=== PATIENT | male | born 1960 | race Caucasian/White ===

== ENCOUNTER 2016-12-16 20:56 | Emergency (ER) | payer BC ==
[~2016-12-16] VITALS: Ht 177.8 cm; Wt 99.8 kg
[~2016-12-16 20:56] MED LIST: ASPIRIN81 M1 PO; BENADRYL25 MG PO; CLARITIN10 MG PO; DAILY VALUE1 EACH PO; DELTASONE10 MG PO; EMEND PO; ENALAPRIL10 MG PO; FISH OIL500 MG PO; FLEXERIL10 MG PO; GLUCOPHAGE1000 MG PO; GLUCOPHAGE500 M1 PO; GLUCOPHAGE500 MG PO; HYDROCODONE BIT1 T11 PO; JANUVIA100 MG PO; MEDROL DOSEPAK4 MG PO; MOTRIN800 MG PO; NAPROSYN500 MG PO; NKHM; NORFLEX100 MG PO; PERCOCET 325 MG1 TA5 PO; PHENERGAN25 M1 PO; PREDNISONE10 MG PO; SKELAXIN800 M1 PO; ULTRAM50 MG PO; VICODIN 5/500 505 MG PO; ZYRTEC10 M3 PO; ZYRTEC10 MG PO
[2016-12-16 22:04] VITALS: BP 150/87
[2016-12-16] MEDS ORDERED: PREDNISONE10 MG PO (23:09)
[2016-12-16] MEDS ORDERED: CIMETIDINE400 M1 PO (23:09)
[2016-12-16] MEDS ORDERED: LOPRESSOR25 MG PO (23:24)
== END 2016-12-16 23:39 | disposition home or self-care (01) ==
LOC: ED 20:56
DX: T78.3XXA Angioneurotic edema, initial encounter (principal); Z79.82 Long term (current) use of aspirin

== ENCOUNTER → 2017-03-23 | Outpatient (CLI) | payer BC ==
[~2017-03-23] MED LIST changes: +CIMETIDINE400 M1 PO; +LOPRESSOR25 MG PO
[2017-03-23 10:16] LABS: HEMATOCRIT 47.6 % (42.0-52.0); HEMOGLOBIN 16.8 g/dl (14.0-18.0); MEAN CORPUSCULAR HGB CONC 35.3 g/dl (33.0-37.0); MEAN PLATELET VOLUME 9.8 fl (9.6-12.3); RED BLOOD COUNT 5.6 10*6/uL (4.50-5.90); RED CELL DISTRI WIDTH 12.1 % (0-14.5); WHITE BLOOD COUNT 9.9 10*3/uL (4.8-10.8)
[2017-03-23 10:46] LABS: HEMOGLOBIN A1c 9.3 % (4.8-5.6)
[2017-03-23 10:48] LABS: ALKALINE PHOSPHATASE 94 U/L (45-117); BILIRUBIN, TOTAL 0.6 mg/dl (0.2-1.0); BUN 18 mg/dl (7-24); CARBON DIOXIDE 27 mmol/L (21-32); CHLORIDE 104 mmol/L (98-107); CHOLESTEROL 195 mg/dL (<200); EST GLOM FILT AFRICAN AMERICAN > 60 ml/min; GLUCOSE 177 mg/dL (65-99); HDL CHOLESTEROL 52 mg/dl (40-60); LDL CHOLESTEROL 113 mg/dL (9-159); POTASSIUM 3.8 mmol/L (3.5-5.1); SGOT/AST 14 IU/L (3-35); SGPT/ALT 36 U/L (12-78); SODIUM 136 mmol/L (136-145); TOTAL PROTEIN 7.4 gm/dL (6.4-8.2); TRIGLYCERIDES 150 mg/dl (<150); VLDL CHOLESTEROL 30 mg/dL (6-40)
== END | disposition home or self-care (01) ==
LOC: LAB 09:07
PROVIDERS: Family Medicine
DX: Z12.5 Encounter for screening for malignant neoplasm of prostate (principal); E11.9 Type 2 diabetes mellitus without complications; E78.00 Pure hypercholesterolemia, unspecified; E55.9 Vitamin D deficiency, unspecified; M19.90 Unspecified osteoarthritis, unspecified site; I10 Essential (primary) hypertension

== ENCOUNTER 2017-06-22 07:01 | Inpatient (IN) | payer BC ==
[2017-06-22] VITALS (9 sets, daily range): BP systolic 122–176; BP diastolic 60–887
[~2017-06-22] VITALS: Ht 175 cm; Wt 109.9 kg
--- NOTE | ~2017-06-22 | CON ---
[place], [place] REPORT OF CONSULTATION NAME: MARY SILVA UNIT #: [id number] ROOM: [facility] DOCTOR: SOFI DUFFY MD BIRTHDATE: [birth year] DOS: 06/22/2017 PULMONARY CONSULTATION, EVALUATION AND MANAGEMENT CONSULTATION REQUESTED BY: Dr. Mame Tavares. REASON FOR CONSULTATION: To assess the patient for possibility of swelling in the left side of the face. Possibility of angioedema. HISTORY OF PRESENT ILLNESS: A 56-year-old white male who has been reported with history of chronic angioedema of unclear etiology in the past. The patient has episodes of angioedema, which has been described several times in the past about 20 years or more. 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 He has been reported with symptoms of angioedema as swelling of the tongue intermittently. The patient has been treated in the hospital, first time in 2000 and later on he has been noted with a couple of other admissions in 2012 and 2013 for a short time. The patient has been treated with corticosteroids, H2 blockers, and antihistamines. The patient stated that he has developed recurrent symptoms at home and came into the Emergency Room for further assessment. The symptoms have been described only unilateral in the left side of the face. The patient stated he was feeling something in his throat as well as in the left side of the cheek. The patient was given the corticosteroids and other medication during his assessment in the Emergency Room. He has been given Benadryl intravenously, famotidine, epinephrine subcutaneously as well as steroid of 20 mg IV x 1. The patient was also given Solu-Cortef as well 1 dose. He has been currently started on Singulair and Zyrtec by Dr. Mame Tavares. The patient was seen at this time in Intensive Care Unit sitting comfortably, talking without any obvious edema of the face noted with minimal edema, if it is, suspected in the left eyelid. The patient denies any difficulty swallowing. Denies difficulty of shortness of breath at this time. Denies any symptoms of chest pain, wheezing or cough. The patient reported no acute symptoms preceding to the current symptoms such as viral infection or others. REVIEW OF SYSTEMS: CONSTITUTIONAL: Complaining of some fatigue, but there were no symptoms of fever or chills. EYES: Denies any burning, redness, or tenderness. EARS, NOSE, THROAT: Denies sore throat, hoarseness, otalgia, postnasal drainage. CARDIOVASCULAR: Denies anginal pain, edema or pain of the lower extremities. GASTROINTESTINAL: Denies dysphagia, nausea, vomiting, diarrhea, abdominal pain, hematemesis, melena, or hematochezia. GENITOURINARY: Denies dysuria, suprapubic pain, or hematuria. MUSCULOSKELETAL: Denies acute joint pain, redness, or tenderness. SKIN: Denies lesions or rashes. CENTRAL NERVOUS SYSTEM: No dizziness, headache, diplopia or seizures. Remaining systems were reviewed with the patient, they were noted all negative. [place], [place] REPORT OF CONSULTATION NAME: MARY SILVA UNIT #: [id number] ROOM: [facility] DOCTOR: SOFI DUFFY MD BIRTHDATE: [birth year] PAST MEDICAL HISTORY: 1. Reported type 2 diabetes mellitus, treated with Glucophage and some other medications. 2. History of essential hypertension. 3. History of chronic moderate obesity. 4. History of recurrent angioedema. SOCIAL HISTORY: The patient is and lives at home. The patient has been noted use of alcohol almost daily basis, beer and other intermittently. Denies any tobacco or illicit drugs. FAMILY HISTORY: The patient's father from complications of COPD. Mother at the age of 66 of complication of CVA. HOME MEDICATIONS: For the patient which were listed as the use of: 1. Zyrtec 10 mg p.o. daily. 2. Glucophage 1000 mg p.o. b.i.d. 3. Lopressor 25 mg p.o. b.i.d. 4. Multivitamin 1 p.o. daily. 5. Vitamin D3 2000 international units daily. 6. Aspirin 81 mg p.o. daily. 7. Multivitamin 1 p.o. daily. DRUG ALLERGIES: Noted as no known drug allergies. PHYSICAL EXAMINATION: GENERAL: A 56-year-old male currently sitting on the side at the bed without any distress. Height of 5 feet 9 inches, weight 242 pounds, BMI 35.8. VITAL SIGNS: Shows normal temperature, respiratory rate 15-20, heart rate 74-83, blood pressure 122/60. Pulse oxygen saturation noted on room air as 92% saturation. HEENT: Examination shows chronic moderate obesity. Neck was supple. Head was atraumatic. Tongue was noted as normal. Moderate reduction of posterior pharyngeal space, high tongue base and crowding of soft tissue structures. Mild palpebral edema of the left eyelid was noted. There was no obvious swelling, rashes of the left side of face noted. CARDIOVASCULAR: S1, S2 audible. LUNGS: Noted moderate reduction of the breath sounds noted in the lungs without any wheeze or crackles. ABDOMEN: Soft, obese, nontender. EXTREMITIES: Show no edema, clubbing, cyanosis. NEUROLOGIC: Cranial nerves 2-12 intact. MUSCULOSKELETAL: No deformities. SKIN: No lesions or rashes. LABORATORY DATA: CMP was noted, glucose 334, BUN and creatinine was normal, sodium 135. No other study was done at this time in the labs including any x-rays. [place], [place] REPORT OF CONSULTATION NAME: MARY SILVA UNIT #: [id number] ROOM: [facility] DOCTOR: FÉLIX MATA MD,SOFI BIRTHDATE: [birth year] IMPRESSION: The patient with possibility of recurrent angioedema by unilateral edema, which was noted unusual for this patient at this time, has been assessed in the past several times including CT scan of the chest, neck and others and no conclusive diagnosis was established. The patient has been seen by other specialists including the ENT specialist. The workup for the allergy was noted, environment allergies were noted negative. The patient does not have C1 esterase level determined or taken in the past. PLAN OF MANAGEMENT: Order CT scan of the neck and the chest with IV contrast to rule out anatomical problem in the vessels and in other areas because of unilateral problem since the angioedema usually noted more generalized problem as unilateral. Rule out any vascular stenosis. Ordered the C1 esterase level that has already been noted in place by Dr. Mame Tavares. Review the results. The patient was advised to use the antihistamine and other medical management. He stated that he does have an EpiPen, but does not use it since ____ usually noted when the episode occurs closer to the hospital. The patient was asked about using the EpiPen if necessary ____ he has developed recurrent symptoms where the symptoms could be life threatening if this would be an angioedema. He showed understanding about that. Tobacco, alcohol cessation was also advised. The patient was taking aspirin; that should be avoided in my opinion as some of the symptoms may be resulting from the use of aspirin. He was also taking beta kaushal for the hypertension management, not using any medications such angiotensin converting enzyme inhibitor which should be avoided. Other supportive plan and management. After review of the CT scan of the neck and the chest, additional recommendation will be given accordingly. SOFI HEARD MD CM:CONSTR:REPORT OF CONSULTATION 1646 06/22/17 1903 interface
--- NOTE | ~2017-06-22 | WRIGHTHP ---
[place], [place] PATIENT HISTORY AND PHYSICAL EXAM [id number] UNIT #: [id number] ROOM: [facility] DOCTOR: ANNITA JEFFERS MD BIRTHDATE: [birth year] DOS: 06/22/2017 HISTORY OF PRESENT ILLNESS: The patient is 56 years old, not known to me, patient with Dr. Toscano, was seen in the Emergency Room. This patient is 56 years old, has had multiple ER visits for angioedema. He has had angioedema for many years, has been used to see an research program coordinator, but not recently. He has been taking Zyrtec, cetirizine generic and has not had any improvement. He does not know what triggers it. He did not do anything unusual day prior to this visit. He woke up in the middle of the night. He knew that he was developing another episode because his throat started feeling like it was closing up and his voice got hoarse. He also has noticed some swelling around his eye and his lip. So, he decided to take Benadryl and decided to come into the Emergency Room because there was no relief. He was seen in the ER, was given Solu-Medrol, epinephrine and cimetidine and was admitted. He continues to have swelling in his left side of his face, especially his eye. He also continues to have some difficulty swallowing. He denies having any chest pains, palpitations or shortness of breath. PAST MEDICAL HISTORY: Significant for: 1. Type 2 diabetes mellitus, lgh-cuvihxu-irehrdtht. 2. Benign hypertension. 3. Angioedema. MEDICATIONS: Cetirizine 10 daily, metformin 1000 b.i.d., and metoprolol 25 b.i.d. SOCIAL HISTORY: Does not smoke, but does drink about 4-5 beers daily. He works for [employer]. He is not , but engaged. He has children who are grown and does not live with him anymore. PHYSICAL EXAMINATION: GENERAL: The patient is awake and alert and oriented. His face is noted to have swelling around the left side, especially his eye. VITAL SIGNS: Graphic trend shows a pressure of 142/70, pulse of 86, respirations 14, afebrile. HEAD AND NECK: Does not show any evidence of any swelling anywhere else. LUNGS: Clear. HEART: Regular. ABDOMEN: Obese, soft, nontender. EXTREMITIES: Without any edema. LABORATORY DATA: CT of the chest was unremarkable. CT of the neck was also unremarkable. ASSESSMENT AND PLAN: 1. Angioedema, which is a chronic problem. Workup was started with C3, C4, CH50 has been ordered. The patient is placed on Singulair and continue cetirizine and low dose steroids. IV has already been ordered. Dr. Lowery has been consulted. 2. Benign hypertension, controlled. The patient does not take his medications [place], [place] PATIENT HISTORY AND PHYSICAL EXAM NAME: MARY SILVA UNIT #: [id number] ROOM: [facility] DOCTOR: ANNITA JEFFERS MD BIRTHDATE: [birth year] regularly. 3. Type 2 diabetes mellitus, rad-lfhhyst-obaezshty. Meds could be continued. 4. Heavy alcohol abuse. Advised discontinuation or at least cut back on the amount. ANNITA JEFFERS MD CM:HISPHYS:PATIENT HISTORY AND PHYSICAL EXAMINATION 6 8 ANNITA JEFFERS MD 06/23/17728 interface
[2017-06-22] MEDS ORDERED: VITAMIN D-32000 UNI1 PO (09:56)
[2017-06-22 12:03] LABS: ALBUMIN 3.8 gm/dl (3.1-4.5); ALKALINE PHOSPHATASE 104 U/L (45-117); BILIRUBIN, TOTAL 0.5 mg/dl (0.2-1.0); BUN 18 mg/dl (7-24); CARBON DIOXIDE 25 mmol/L (21-32); CHLORIDE 103 mmol/L (98-107); EST GLOM FILT AFRICAN AMERICAN > 60 ml/min; GLUCOSE 334 mg/dL (65-99); SGOT/AST 17 IU/L (3-35); SGPT/ALT 37 U/L (12-78); SODIUM 135 mmol/L (136-145); TOTAL PROTEIN 7.3 gm/dL (6.4-8.2)
[2017-06-23] VITALS: BP 147/71
[2017-06-23 04:00] VITALS: BP 150/79
[2017-06-23] MEDS ORDERED: PREDNISONE5 MG PO (06:12)
[2017-06-23] MEDS ORDERED: MONTELUKAST SOD10 MG PO (06:12)
[2017-06-23] MEDS ORDERED: ALL DAY ALLERGY10 MG PO (06:12)
[2017-06-24 07:07] LABS: COMPLEMENT C4 001834 20 mg/dL (14-44)
== END 2017-06-23 06:31 | disposition home or self-care (01) | DRG 916 ==
LOC: ED 07:01 → EDHOLD 08:47 → ICCU 08:47
PROVIDERS: Internal Medicine
DX: T78.3XXA Angioneurotic edema, initial encounter (principal); I10 Essential (primary) hypertension; Z79.899 Other long term (current) drug therapy; E11.9 Type 2 diabetes mellitus without complications; F10.10 Alcohol abuse, uncomplicated; F17.210 Nicotine dependence, cigarettes, uncomplicated; Y90.0 Blood alcohol level of less than 20 mg/100 ml; Z83.6 Family history of other diseases of the respiratory system; Z82.3 Family history of stroke; Z82.49 Family history of ischemic heart disease and other diseases of the circulatory system; Z71.6 Tobacco abuse counseling; Z71.41 Alcohol abuse counseling and surveillance of alcoholic; Z79.82 Long term (current) use of aspirin

== ENCOUNTER 2017-08-23 14:29 | Emergency (ER) | payer BC ==
[~2017-08-23] VITALS: Ht 172.7 cm; Wt 106.6 kg
[2017-08-23] VITALS (7 sets, daily range): BP systolic 162–216; BP diastolic 78–114
--- NOTE | ~2017-08-23 | WRIGHTHP ---
[place], [place] PATIENT HISTORY AND PHYSICAL EXAM NAME: MARY SILVA [facility] #: [id number] UNIT #: [id number] ROOM: 507 DOCTOR: KOKO HERNANDEZ MD BIRTHDATE: [birth year] DOS: 08/23/2017 HISTORY OF PRESENT ILLNESS: The patient is a 57-year-old gentleman who presented to the Emergency Department with severe left-sided jaw pains from related to acute infection. The patient is already on antibiotics given by his dentist and he was taking ampicillin. In the Emergency Department, the patient was found to have severely elevated blood pressures of 216/108 diastolic. The patient initially treated with clonidine, pain medication and his blood pressure is improving. The patient's blood pressures were high because of his pain. The patient was given morphine in the ER and Demerol with some pain relief. No complaints of any chest pain, shortness of breath. No other GI or urinary symptoms. The patient says he has been hurting in his tooth for several days now and that he had not been taking his blood pressure medications. REVIEW OF SYSTEMS: LUNGS: No increasing shortness of breath or wheezing. GASTROINTESTINAL: No nausea, vomiting, diarrhea or constipation. CARDIOVASCULAR: No chest pains or palpitations. FAMILY HISTORY: Noncontributory. SOCIAL HISTORY: Denies smoking cigarettes, alcohol and drug abuse. MEDICATIONS: The patient takes metoprolol at home, aspirin, metformin, cetirizine, ampicillin at home. ALLERGIES: No known drug allergies. PHYSICAL EXAMINATION: GENERAL: Alert, oriented x 3, in no visible distress, moderately obese. HEENT AND NECK: Extraocular movements are intact. Sclerae are anicteric. Oral mucosa is moist and clean. No obvious facial weakness. Neck is supple without any lymphadenopathy. No thyromegaly. No JVD. No carotid arterial bruits. Examination of the oral cavity did not relieve any abscesses, but he has very poor dental hygiene and dental caries. LUNGS: Clear to auscultation. No wheezing. No rhonchi. CARDIOVASCULAR SYSTEM: Heart rate is regular in rate and rhythm. S1 and S2 normally audible. No significant murmur or any other abnormal cardiac sounds. ABDOMEN: Soft, nontender. No obvious organomegaly. Bowel sounds are present. No obvious herniation. EXTREMITIES: Without significant cyanosis or edema. Warm to touch. CENTRAL NERVOUS SYSTEM: Alert and oriented x 3. Cranial nerves II-XII are intact. Speech is normal. The patient is able to move all extremities. Normal muscle strength. Deep tendon reflexes are equal on both sides. Plantars were downgoing. LABORATORY DATA: Slight leukocytosis. White cell count of 11,000. No left shift. Normal platelets. Lactic acid level normal at 1.9. Normal serum electrolytes, bilirubin, liver enzymes. Blood sugar is elevated to 359. [place], [place] PATIENT HISTORY AND PHYSICAL EXAM NAME: MARY SILVA UNIT #: [id number] ROOM: [facility] DOCTOR: KOKO HERNANDEZ MD BIRTHDATE: [birth year] IMPRESSION AND PLAN: 1. Severe hypertension. The patient's blood pressures have started improving. The patient is being admitted to ICU for close monitoring. I am starting him on Norvasc and if the blood pressures stay stable tomorrow morning, he can be put on a step-down unit. 2. Poorly compliant, patient not taking his medications properly and poor dental hygiene. I have not been able to identify any abscess ____ his dental hygiene is very poor and he has dental caries. I will keep him on Augmentin and pain medications as necessary. I will give him IV Toradol for pain relief. 3. Type 2 diabetes mellitus with uncontrolled blood sugar of 315. I will keep him on metformin. No concentrated sweet diet and monitor blood sugars. 4. Moderate obesity. The patient to work with Dietary. 5. Benign essential hypertension. Blood pressure are being monitored. KOKO HERNANDEZ MD CM:HISPHYS:PATIENT HISTORY AND PHYSICAL EXAMINATION 46 43 KOKO HERNANDEZ MD 08/23/172043 interface
--- NOTE | ~2017-08-23 | EKG ---
[place], [place] ELECTROCARDIOGRAM REPORT NAME: MARY SILVA UNIT #: [id number] ROOM: DOCTOR: NATALY HE MD BIRTHDATE: [birth year] DOS: 08/23/2017 TIME: 1520 hours. Normal sinus rhythm at 58 beats per minute. The tracing is normal. No previous tracing is available for comparison. NATALY HE MD CM:EKGRPT:ELECTROCARDIOGRAM REPORT [id number] 1417 NATALY HE MD
[~2017-08-23 14:29] MED LIST changes: +ALL DAY ALLERGY10 MG PO; +MONTELUKAST SOD10 MG PO; +PREDNISONE5 MG PO; +VITAMIN D-32000 UNI1 PO
[2017-08-23 15:13] LABS: BASO # 0.1 10*3/uL (0.0-0.1); BASO % 0.5 % (0.0-1.0); EOS # 0.2 10*3/uL (0.0-0.4); EOS % 1.9 % (1.0-4.0); HEMOGLOBIN 16.3 g/dl (14.0-18.0); LYMPH % 18.5 % (27.0-41.0); MEAN CELL VOLUME 86.3 fl (80.0-94.0); MEAN CORPUSCULAR HGB 30.6 pg (27.0-31.0); MEAN CORPUSCULAR HGB CONC 35.4 g/dl (33.0-37.0); MEAN PLATELET VOLUME 10.6 fl (9.6-12.3); MONO # 0.7 10*3/uL (0.1-1.0); MONO % 6.2 % (3.0-9.0); NEUT % 72.6 % (47.0-73.0); PLATELET COUNT AUTOMATED 216 10*3/uL (130-400); RED BLOOD COUNT 5.33 10*6/uL (4.50-5.90); RED CELL DISTRI WIDTH 11.8 % (0-14.5)
[2017-08-23 15:21] LABS: INTERNATIONAL NORM RATIO 0.9 (2.0-3.5)
[2017-08-23 15:29] LABS: ALBUMIN 3.8 gm/dl (3.1-4.5); ALKALINE PHOSPHATASE 120 U/L (45-117); BUN 18 mg/dl (7-24); CHLORIDE 100 mmol/L (98-107); CREATININE 1.03 mg/dL (0.70-1.30); POTASSIUM 4.5 mmol/L (3.5-5.1); SGOT/AST 19 IU/L (3-35); SGPT/ALT 34 U/L (12-78); SODIUM 133 mmol/L (136-145); TOTAL PROTEIN 7.1 gm/dL (6.4-8.2)
[2017-08-23 15:33] LABS: TROPONIN I < 0.015 ng/ml (<0.045)
--- NOTE | 2017-08-23 15:40 | NUR ---
PAIN MEDS INEFFECTIVE PER PT,EDGAR MARTINEZ PA-C NOTIFIED
--- NOTE | 2017-08-23 16:06 | NUR ---
PAIN MEDICATION INEFFECTIVE FOR S/S,THE JAW PAIN IS GOING UP MY FACE INTO MY HEAD", EDGAR MARTINEZ PA-C NOTIFIED.
--- NOTE | 2017-08-23 17:05 | NUR ---
PT REMAINS W/O ACUTE DISTRESS NOTED AWAITING FURTHER EVAL FOR ADDITIONAL PLAN OF CARE,FAMILY @ BEDSIDE.PT NOTIFIED THAT URINE SAMPLE IS ORDERED IF ABLE TO PROVIDE,ACKNOWLEDGMENT GIVEN.
--- NOTE | 2017-08-23 17:18 | NUR ---
PT TO RESTROOM AND FORGOT NEEDED URINE SAMPLE @ THIS TIME.
--- NOTE | 2017-08-23 17:26 | NUR ---
ALPRESOLINE AND DEMEROL STOP TIMES ARE NOW.
--- NOTE | 2017-08-23 18:37 | NUR ---
PAIN RELIEF @ THIS TIME NOTED.
--- NOTE | 2017-08-23 19:08 | NUR ---
PT PROVIDED BOX LUNCH AND JUICE,FAMILY @ BEDSIDE AND NO ACUTE DISTRESS NOTED
--- NOTE | 2017-08-23 19:14 | NUR ---
PT TO RESTROOM W/O URINE SAMPLE PROVIDED.
--- NOTE | 2017-08-23 19:53 | NUR ---
PT WITH REDNESS AN ITCHING NOTED TO LEFT AC AREA PT CONCERNED POSSIBLE ALLERGIC REACTION TO BP CUFF,NO RESP DIFFICULTIES NOTED AND FAMILY REMAINS @ BEDSIDE.
--- NOTE | 2017-08-23 20:10 | NUR ---
The patient, MARY SILVA, 57, [birth year], [id number], [id number], presented to the Emergency Department at 1432. The patient's Chief Complaint was DENTAL PAIN/HTN . The patient subsequently left "Against Medical Advice" at 2011. Treatment completed included SEE CHART . Possible complications and consequences of not following medical advice were clearly explained to the patient by Dr. and ABDULKADIR CHOI LPN RN. Assessment of the patient's competence, for making the decision to refuse completion of previously requested exam and treatment, includes alert and oriented. Attempts WERE made to get FAMILY involved in persuading the patient to accept, EDGAR Walker PA-C, the physician's recommendations. Discussion included ADVANTAGES OF COMPLETING TX AND DISADVANTAGES INCLUDING WITH NONCOMPLIANCE OF A PHYSICIANS/JENNIFER RECOMMENDATION . The patient's response was WILL COME BACK IF NEED TOO AND WILL TAKE HIS PRESCRIPTION MEDS DIRECTED . Family/friends who witnessed the discussion includes SPOUSE/ABDULKADIR CHOI LPN . Signatures WERE requested. The patient DID sign the chart; this was witnessed by ABDULKADIR CHOI LPN RN. The patient's reason for departing, prior to completion of treatment was "refuses to be admitted". The patient's disposition is dc against medical advice, to the care of FAMILY. Arrangements have been made for the ED staff to "Call Back" the patient the following day, to inquire about the patient's medical status and encourage MARY SILVA, to seek medical attention, if this has not been completed. ABDULKADIR CHOI
== END 2017-08-23 20:35 | disposition left against medical advice (07) ==
LOC: ED 14:29 → EDHOLD 17:24 → 5E 19:47
PROVIDERS: Physician Assistant
DX: I10 Essential (primary) hypertension (principal); E11.9 Type 2 diabetes mellitus without complications; Z79.899 Other long term (current) drug therapy; Z79.82 Long term (current) use of aspirin

== ENCOUNTER 2017-09-05 19:22 | Emergency (ER) | payer BC ==
[~2017-09-05] VITALS: Ht 175.2 cm; Wt 106.6 kg
[2017-09-05 19:32] VITALS: BP 145/83
[2017-09-05] MEDS ORDERED: CEFADROXIL500 M1 PO (21:37)
[2017-09-05] MEDS ORDERED: Motrin,Rufen800 MG PO (21:37)
== END 2017-09-05 21:52 | disposition home or self-care (01) ==
LOC: ED 19:22
DX: S01.412A Laceration without foreign body of left cheek and temporomandibular area, initial encounter (principal); S05.11XA Contusion of eyeball and orbital tissues, right eye, initial encounter; Z79.899 Other long term (current) drug therapy; Z79.82 Long term (current) use of aspirin; Y04.0XXA Assault by unarmed brawl or fight, initial encounter; Y93.89 Activity, other specified; Y92.89 Other specified places as the place of occurrence of the external cause; Y99.8 Other external cause status

== ENCOUNTER → 2018-02-23 | Outpatient (CLI) | payer BC ==
[~2018-02-23] MED LIST changes: +CEFADROXIL500 M1 PO; +Motrin,Rufen800 MG PO
[2018-02-23 15:53] LABS: HEMATOCRIT 46.9 % (42.0-52.0); HEMOGLOBIN 16.4 g/dl (14.0-18.0); MEAN CORPUSCULAR HGB 29.7 pg (27.0-31.0); MEAN PLATELET VOLUME 10.5 fl (9.6-12.3); RED BLOOD COUNT 5.52 10*6/uL (4.50-5.90); RED CELL DISTRI WIDTH 11.7 % (0-14.5); WHITE BLOOD COUNT 11.4 10*3/uL (4.8-10.8)
[2018-02-23 16:08] LABS: ALBUMIN 4.3 gm/dl (3.1-4.5); ALKALINE PHOSPHATASE 97 U/L (45-117); BUN 22 mg/dl (7-24); CHLORIDE 99 mmol/L (98-107); CHOLESTEROL 185 mg/dL (<200); CREATININE 1.03 mg/dL (0.70-1.30); HDL CHOLESTEROL 46 mg/dl (40-60); LDL CHOLESTEROL 113 mg/dL (9-159); POTASSIUM 4.4 mmol/L (3.5-5.1); SGOT/AST 14 IU/L (3-35); SGPT/ALT 40 U/L (12-78); SODIUM 133 mmol/L (136-145); TOTAL PROTEIN 7.4 gm/dL (6.4-8.2); TRIGLYCERIDES 130 mg/dl (<150); VLDL CHOLESTEROL 26 mg/dL (6-40)
== END | disposition home or self-care (01) ==
LOC: LAB 15:07
PROVIDERS: Family Medicine
DX: Z12.5 Encounter for screening for malignant neoplasm of prostate (principal); I10 Essential (primary) hypertension; R53.83 Other fatigue; R79.89 Other specified abnormal findings of blood chemistry

== ENCOUNTER → 2018-12-25 | Outpatient (CLI) | payer BC ==
[2018-12-25 08:06] LABS: BASO # 0.1 10*3/uL (0.0-0.1); BASO % 0.7 % (0.0-1.0); EOS # 0.1 10*3/uL (0.0-0.4); HEMATOCRIT 48.1 % (42.0-52.0); HEMOGLOBIN 17.2 g/dl (14.0-18.0); LYMPH # 1.8 10*3/uL (1.3-4.4); LYMPH % 24.8 % (27.0-41.0); MEAN CELL VOLUME 85.6 fl (80.0-94.0); MEAN CORPUSCULAR HGB 30.6 pg (27.0-31.0); MEAN CORPUSCULAR HGB CONC 35.8 g/dl (33.0-37.0); MONO # 0.5 10*3/uL (0.1-1.0); MONO % 6.6 % (3.0-9.0); NEUT # 4.7 10*3/uL (2.3-7.9); NEUT % 65.5 % (47.0-73.0); PLATELET COUNT AUTOMATED 230 10*3/uL (130-400); RED BLOOD COUNT 5.62 10*6/uL (4.50-5.90); WHITE BLOOD COUNT 7.1 10*3/uL (4.8-10.8)
[2018-12-25 08:24] LABS: BILIRUBIN, DIRECT 0.2 mg/dL (0.0-0.2); TOTAL PROTEIN 7.7 gm/dL (6.4-8.2)
[2018-12-25 08:30] LABS: THYROID STIM HORMONE (HS) 0.888 uIU/ml (0.358-4.75)
[2018-12-25 09:34] LABS: BILIRUBIN NEGATIVE (NEGATIVE); BLOOD NEGATIVE (NEGATIVE); CLARITY SL CLOUDY (CLEAR); COLOR YELLOW (YELLOW); GLUCOSE 3+ (NEGATIVE); KETONE 1+ (NEGATIVE); LEUKO ESTERASE NEGATIVE (NEGATIVE); NITRITE NEGATIVE (NEGATIVE); PH 5.5 (5.0-9.0); SPECIFIC GRAVITY 1.025 (1.005-1.030); UROBILINOGEN 0.2 E.U./dl (0.2-1.0)
[2018-12-25 10:54] LABS: RBC 0-2 rbc/hpf (0-2)
[2018-12-25 10:55] LABS: EPITHELIAL CELLS 0-2
[2018-12-26 05:11] LABS: TOTAL PROTEIN, SERUM 6.9 g/dL (6.0-8.5)
[2018-12-26 15:08] LABS: A/G RATIO 1.5 (0.7-1.7); ALBUMIN 4.1 g/dL (2.9-4.4); ALPHA-1-GLOBULIN 0.2 g/dL (0.0-0.4); ALPHA-2-GLOBULIN 0.8 g/dL (0.4-1.0); BETA GLOBULIN 1.1 g/dL (0.7-1.3); GAMMA GLOBULIN 0.8 g/dL (0.4-1.8); GLOBULIN, TOTAL 2.8 g/dL (2.2-3.9); M-SPIKE Not Observed g/dL (Not Observed)
[2018-12-27 07:07] LABS: TRYPTASE 004280 6.8 ug/L (2.2-13.2)
== END | disposition home or self-care (01) ==
LOC: LAB 07:15
PROVIDERS: Nurse Practitioner Family
DX: N40.1 Benign prostatic hyperplasia with lower urinary tract symptoms (principal); H10.9 Unspecified conjunctivitis; J30.9 Allergic rhinitis, unspecified; T78.3XXA Angioneurotic edema, initial encounter; L29.8 Other pruritus

== ENCOUNTER → 2019-03-28 | Outpatient (CLI) | payer BC ==
[~2019-03-28] MED LIST changes: +ALLEGRA ALLERG180 M2 PO; +FAMOTIDINE20 M1 PO; +GOOD NEIGHBOR L10 MG PO; +PREDNISONE20 M1 PO; +SILDENAFIL20 M1 PO; +TAMSULOSIN HCL0.4 MG PO; +ZESTRIL,PRINIVIL5 MG PO
[2019-03-28 07:59] LABS: BASO # 0.1 10*3/uL (0.0-0.1); BASO % 0.8 % (0.0-1.0); EOS # 0.3 10*3/uL (0.0-0.4); EOS % 3.8 % (1.0-4.0); HEMATOCRIT 46.5 % (42.0-52.0); HEMOGLOBIN 15.4 g/dl (14.0-18.0); LYMPH # 2.5 10*3/uL (1.3-4.4); LYMPH % 28.1 % (27.0-41.0); MEAN CELL VOLUME 88.9 fl (80.0-94.0); MEAN CORPUSCULAR HGB 29.4 pg (27.0-31.0); MEAN CORPUSCULAR HGB CONC 33.1 g/dl (33.0-37.0); MEAN PLATELET VOLUME 10.1 fl (9.6-12.3); MONO # 0.7 10*3/uL (0.1-1.0); NEUT # 5.3 10*3/uL (2.3-7.9); NEUT % 58.9 % (47.0-73.0); PLATELET COUNT AUTOMATED 227 10*3/uL (130-400); RED BLOOD COUNT 5.23 10*6/uL (4.50-5.90); RED CELL DISTRI WIDTH 12.1 % (0-14.5); WHITE BLOOD COUNT 8.9 10*3/uL (4.8-10.8)
[2019-03-28 08:43] LABS: CHLORIDE 103 mmol/L (98-107); POTASSIUM 3.7 mmol/L (3.5-5.1); SODIUM 136 mmol/L (136-145)
[2019-03-28 08:45] LABS: VITAMIN D, 25-HYDROXY 29.8 ng/mL (30-100)
[2019-03-28 08:55] LABS: ALBUMIN 3.7 gm/dl (3.1-4.5); ALKALINE PHOSPHATASE 83 U/L (45-117); BUN 12 mg/dl (7-24); CHOLESTEROL 169 mg/dL (<200); CREATININE 0.89 mg/dL (0.70-1.30); FREE T4 0.97 ng/dl (0.76-1.46); HDL CHOLESTEROL 50 mg/dl (40-60); LDL CHOLESTEROL 80 mg/dL (9-159); SGOT/AST 10 IU/L (3-35); SGPT/ALT 27 U/L (12-78); TOTAL PROTEIN 6.8 gm/dL (6.4-8.2); TRIGLYCERIDES 196 mg/dl (<150); VLDL CHOLESTEROL 39 mg/dL (6-40)
== END | disposition home or self-care (01) ==
LOC: LAB 07:14
PROVIDERS: Internal Medicine
DX: Z13.21 Encounter for screening for nutritional disorder (principal); Z13.220 Encounter for screening for lipoid disorders; Z13.6 Encounter for screening for cardiovascular disorders; E11.65 Type 2 diabetes mellitus with hyperglycemia; I10 Essential (primary) hypertension

== ENCOUNTER 2019-05-03 19:58 | Emergency (ER) | payer BC ==
[~2019-05-03] VITALS: Ht 177.8 cm; Wt 118.8 kg
[~2019-05-03 19:58] MED LIST changes: -PREDNISONE20 M1 PO
[2019-05-03 20:01] VITALS: BP 146/90
[2019-05-03 20:14] LABS: BILIRUBIN NEGATIVE (NEGATIVE); BLOOD NEGATIVE (NEGATIVE); CLARITY CLEAR (CLEAR); COLOR YELLOW (YELLOW); GLUCOSE 1+ (NEGATIVE); KETONE NEGATIVE (NEGATIVE); LEUKO ESTERASE NEGATIVE (NEGATIVE); NITRITE NEGATIVE (NEGATIVE); PH 5.5 (5.0-9.0); SPECIFIC GRAVITY <= 1.005 (1.005-1.030); UROBILINOGEN 0.2 E.U./dl (0.2-1.0)
[2019-05-03 20:21] LABS: BASO # 0.1 10*3/uL (0.0-0.1); BASO % 0.6 % (0.0-1.0); EOS # 0.1 10*3/uL (0.0-0.4); EOS % 1.2 % (1.0-4.0); HEMATOCRIT 48.4 % (42.0-52.0); LYMPH # 2.7 10*3/uL (1.3-4.4); LYMPH % 31.6 % (27.0-41.0); MEAN CELL VOLUME 86.7 fl (80.0-94.0); MEAN CORPUSCULAR HGB 30.5 pg (27.0-31.0); MEAN CORPUSCULAR HGB CONC 35.1 g/dl (33.0-37.0); MEAN PLATELET VOLUME 9.7 fl (9.6-12.3); MONO # 0.5 10*3/uL (0.1-1.0); MONO % 5.7 % (3.0-9.0); NEUT # 5.2 10*3/uL (2.3-7.9); NEUT % 60.4 % (47.0-73.0); PLATELET COUNT AUTOMATED 241 10*3/uL (130-400); RED BLOOD COUNT 5.58 10*6/uL (4.50-5.90); RED CELL DISTRI WIDTH 12.3 % (0-14.5); WHITE BLOOD COUNT 8.6 10*3/uL (4.8-10.8)
[2019-05-03 20:37] LABS: ALKALINE PHOSPHATASE 89 U/L (45-117); BUN 10 mg/dl (7-24); CHLORIDE 106 mmol/L (98-107); CREATININE 0.84 mg/dL (0.70-1.30); LIPASE 117 U/L (73-393); POTASSIUM 3.7 mmol/L (3.5-5.1); SGOT/AST 15 IU/L (3-35); SGPT/ALT 40 U/L (12-78); SODIUM 140 mmol/L (136-145); TOTAL PROTEIN 7.4 gm/dL (6.4-8.2)
[2019-06-27] MEDS ORDERED: PREDNISONE20 M1 PO (20:38)
== END 2019-05-03 20:32 ==
LOC: ED 19:58
PROVIDERS: Emergency Medicine
DX: R10.9 Unspecified abdominal pain (principal); F10.129 Alcohol abuse with intoxication, unspecified; I10 Essential (primary) hypertension; Z79.899 Other long term (current) drug therapy; Z79.84 Long term (current) use of oral hypoglycemic drugs

== ENCOUNTER → 2019-06-21 | Outpatient (CLI) | payer BC ==
[2019-06-21 08:59] LABS: BASO # 0.1 10*3/uL (0.0-0.1); BASO % 0.8 % (0.0-1.0); EOS # 0.3 10*3/uL (0.0-0.4); EOS % 3.7 % (1.0-4.0); HEMATOCRIT 49.9 % (42.0-52.0); HEMOGLOBIN 17.1 g/dl (14.0-18.0); LYMPH # 2.1 10*3/uL (1.3-4.4); LYMPH % 29.3 % (27.0-41.0); MEAN CELL VOLUME 89.4 fl (80.0-94.0); MEAN CORPUSCULAR HGB 30.6 pg (27.0-31.0); MEAN CORPUSCULAR HGB CONC 34.3 g/dl (33.0-37.0); MEAN PLATELET VOLUME 10.3 fl (9.6-12.3); MONO # 0.6 10*3/uL (0.1-1.0); MONO % 7.8 % (3.0-9.0); NEUT # 4.1 10*3/uL (2.3-7.9); PLATELET COUNT AUTOMATED 253 10*3/uL (130-400); RED BLOOD COUNT 5.58 10*6/uL (4.50-5.90); WHITE BLOOD COUNT 7.1 10*3/uL (4.8-10.8)
[2019-06-21 09:21] LABS: ALBUMIN 3.8 gm/dl (3.1-4.5); ALKALINE PHOSPHATASE 76 U/L (45-117); BILIRUBIN, DIRECT 0.1 mg/dL (0.0-0.2); BUN 16 mg/dl (7-24); CHLORIDE 106 mmol/L (98-107); CHOLESTEROL 191 mg/dL (<200); CREATININE 0.89 mg/dL (0.70-1.30); HDL CHOLESTEROL 45 mg/dl (40-60); LDL CHOLESTEROL 113 mg/dL (9-159); POTASSIUM 4.2 mmol/L (3.5-5.1); SGOT/AST 15 IU/L (3-35); SGPT/ALT 34 U/L (12-78); SODIUM 138 mmol/L (136-145); TOTAL PROTEIN 7.1 gm/dL (6.4-8.2); TRIGLYCERIDES 165 mg/dl (<150); VLDL CHOLESTEROL 33 mg/dL (6-40)
== END | disposition home or self-care (01) ==
LOC: LAB 08:06
PROVIDERS: Physician Assistant
DX: Z51.81 Encounter for therapeutic drug level monitoring (principal); Z79.899 Other long term (current) drug therapy

== ENCOUNTER 2019-10-17 09:53 | Emergency (ER) | payer BC ==
[~2019-10-17] VITALS: Ht 172.7 cm; Wt 113.4 kg
[2019-10-17 09:53] VITALS: BP 126/94
[~2019-10-17 09:53] MED LIST changes: +PREDNISONE20 M1 PO
[2019-10-17] MEDS ORDERED: PROVENTIL HFA6.7 GM INH (11:59)
[2019-10-17] MEDS ORDERED: PREDNISONE20 M1 PO (11:59)
[2019-10-17] MEDS ORDERED: AVPAK AZITHROM250 MG PO (11:59)
== END 2019-10-17 12:17 | disposition home or self-care (01) ==
LOC: ED 09:53
DX: J20.9 Acute bronchitis, unspecified (principal); I10 Essential (primary) hypertension; E11.9 Type 2 diabetes mellitus without complications; K21.9 Gastro-esophageal reflux disease without esophagitis; Z79.899 Other long term (current) drug therapy

== ENCOUNTER → 2019-11-02 | Outpatient (CLI) | payer BC ==
[~2019-11-02] MED LIST changes: +AVPAK AZITHROM250 MG PO; +PROVENTIL HFA6.7 GM INH
[2019-11-02 08:45] LABS: BASO # 0.1 10*3/uL (0.0-0.1); BASO % 0.9 % (0.0-1.0); EOS # 0.4 10*3/uL (0.0-0.4); EOS % 5.9 % (1.0-4.0); HEMATOCRIT 48.8 % (42.0-52.0); HEMOGLOBIN 16.3 g/dl (14.0-18.0); LYMPH # 2.1 10*3/uL (1.3-4.4); LYMPH % 32.4 % (27.0-41.0); MEAN CELL VOLUME 89.1 fl (80.0-94.0); MEAN CORPUSCULAR HGB 29.7 pg (27.0-31.0); MEAN CORPUSCULAR HGB CONC 33.4 g/dl (33.0-37.0); MONO # 0.5 10*3/uL (0.1-1.0); NEUT # 3.4 10*3/uL (2.3-7.9); NEUT % 52.5 % (47.0-73.0); PLATELET COUNT AUTOMATED 218 10*3/uL (130-400); RED BLOOD COUNT 5.48 10*6/uL (4.50-5.90); RED CELL DISTRI WIDTH 12.2 % (0-14.5); WHITE BLOOD COUNT 6.4 10*3/uL (4.8-10.8)
[2019-11-02 09:03] LABS: ALBUMIN 3.6 gm/dl (3.1-4.5); ALKALINE PHOSPHATASE 90 U/L (45-117); BUN 19 mg/dl (7-24); CHLORIDE 110 mmol/L (98-107); CHOLESTEROL 179 mg/dL (<200); CREATININE 0.91 mg/dL (0.70-1.30); FREE T4 0.76 ng/dl (0.76-1.46); HDL CHOLESTEROL 40 mg/dl (40-60); LDL CHOLESTEROL 107 mg/dL (9-159); POTASSIUM 4.4 mmol/L (3.5-5.1); SGOT/AST 16 IU/L (3-35); SGPT/ALT 49 U/L (12-78); SODIUM 140 mmol/L (136-145); TOTAL PROTEIN 6.9 gm/dL (6.4-8.2); TRIGLYCERIDES 160 mg/dl (<150); VLDL CHOLESTEROL 32 mg/dL (6-40)
[2019-11-02 13:03] LABS: VITAMIN D, 25-HYDROXY 30.2 ng/mL (30-100)
== END | disposition home or self-care (01) ==
LOC: LAB 08:16
PROVIDERS: Internal Medicine
DX: Z12.5 Encounter for screening for malignant neoplasm of prostate (principal); I10 Essential (primary) hypertension; E11.65 Type 2 diabetes mellitus with hyperglycemia; E03.9 Hypothyroidism, unspecified; E55.9 Vitamin D deficiency, unspecified; R53.81 Other malaise; R79.89 Other specified abnormal findings of blood chemistry; D51.9 Vitamin B12 deficiency anemia, unspecified

== ENCOUNTER → 2020-09-16 | Outpatient (CLI) | payer BC ==
[2020-09-16 08:39] LABS: BASO # 0.1 10*3/uL (0.0-0.1); BASO % 0.8 % (0.0-1.0); EOS # 0.2 10*3/uL (0.0-0.4); EOS % 2.1 % (1.0-4.0); HEMATOCRIT 50.2 % (42.0-52.0); LYMPH # 2.8 10*3/uL (1.3-4.4); MEAN CELL VOLUME 87.2 fl (80.0-94.0); MEAN CORPUSCULAR HGB 29.5 pg (27.0-31.0); MEAN CORPUSCULAR HGB CONC 33.9 g/dl (33.0-37.0); MEAN PLATELET VOLUME 9.9 fl (9.6-12.3); MONO # 0.7 10*3/uL (0.1-1.0); MONO % 7.7 % (3.0-9.0); NEUT # 4.7 10*3/uL (2.3-7.9); PLATELET COUNT AUTOMATED 238 10*3/uL (130-400); RED BLOOD COUNT 5.76 10*6/uL (4.50-5.90); RED CELL DISTRI WIDTH 12.3 % (0-14.5); WHITE BLOOD COUNT 8.4 10*3/uL (4.8-10.8)
[2020-09-16 09:09] LABS: ALBUMIN 3.9 gm/dl (3.1-4.5); ALKALINE PHOSPHATASE 89 U/L (45-117); BUN 21 mg/dl (7-24); CHLORIDE 105 mmol/L (98-107); CHOLESTEROL 184 mg/dL (<200); CREATININE 1.01 mg/dL (0.70-1.30); HDL CHOLESTEROL 39 mg/dl (40-60); LDL CHOLESTEROL 77 mg/dL (9-159); POTASSIUM 4.3 mmol/L (3.5-5.1); SGOT/AST 17 IU/L (3-35); SGPT/ALT 52 U/L (12-78); SODIUM 139 mmol/L (136-145); T3 UPTAKE 33 % (31-39); THYROXINE (T4) TOTAL 7.8 ug/dl (4.5-12.1); TOTAL PROTEIN 7.6 gm/dL (6.4-8.2); TRIGLYCERIDES 338 mg/dl (<150); VLDL CHOLESTEROL 68 mg/dL (6-40)
[2020-09-16 09:12] LABS: VITAMIN D, 25-HYDROXY 35.5 ng/mL (30-100)
== END | disposition home or self-care (01) ==
LOC: LAB 08:17
PROVIDERS: ATTEND Internal Medicine
DX: E11.9 Type 2 diabetes mellitus without complications (principal)

== ENCOUNTER 2021-02-11 20:01 | Emergency (ER) | payer BC ==
[~2021-02-11] VITALS: Ht 175.2 cm; Wt 113.4 kg
[2021-02-11 20:10] VITALS: BP 144/79
[2021-02-11] MEDS ORDERED: NAPROSYN500 MG PO (20:33)
== END 2021-02-11 20:50 | disposition home or self-care (01) ==
LOC: ED 20:01
DX: S60.221A Contusion of right hand, initial encounter (principal); Z79.899 Other long term (current) drug therapy; W22.8XXA Striking against or struck by other objects, initial encounter; Y93.89 Activity, other specified; Y92.89 Other specified places as the place of occurrence of the external cause; Y99.8 Other external cause status

== ENCOUNTER → 2021-03-22 | Outpatient (CLI) | payer BC ==
[2021-03-22 07:20] LABS: BASO # 0.1 10*3/uL (0.0-0.1); BASO % 0.7 % (0.0-1.0); EOS # 0.2 10*3/uL (0.0-0.4); EOS % 2.3 % (1.0-4.0); HEMATOCRIT 46.7 % (42.0-52.0); LYMPH # 2.5 10*3/uL (1.3-4.4); LYMPH % 35.2 % (27.0-41.0); MEAN CELL VOLUME 85.4 fl (80.0-94.0); MEAN CORPUSCULAR HGB 29.3 pg (27.0-31.0); MEAN CORPUSCULAR HGB CONC 34.3 g/dl (33.0-37.0); MEAN PLATELET VOLUME 10.1 fl (9.6-12.3); MONO # 0.5 10*3/uL (0.1-1.0); MONO % 7.5 % (3.0-9.0); NEUT # 3.8 10*3/uL (2.3-7.9); PLATELET COUNT AUTOMATED 262 10*3/uL (130-400); RED BLOOD COUNT 5.47 10*6/uL (4.50-5.90); RED CELL DISTRI WIDTH 11.9 % (0-14.5); WHITE BLOOD COUNT 7.1 10*3/uL (4.8-10.8)
[2021-03-22 08:02] LABS: ALBUMIN 3.8 gm/dl (3.1-4.5); ALKALINE PHOSPHATASE 89 U/L (45-117); BUN 13 mg/dl (7-24); CHLORIDE 109 mmol/L (98-107); CHOLESTEROL 153 mg/dL (<200); CREATININE 0.92 mg/dL (0.70-1.30); FREE T4 0.95 ng/dl (0.76-1.46); LDL CHOLESTEROL 92 mg/dL (9-159); POTASSIUM 3.9 mmol/L (3.5-5.1); SGOT/AST 13 IU/L (3-35); SGPT/ALT 44 U/L (12-78); SODIUM 140 mmol/L (136-145); TOTAL PROTEIN 7.1 gm/dL (6.4-8.2); TRIGLYCERIDES 114 mg/dl (<150)
[2021-03-22 08:09] LABS: VITAMIN D, 25-HYDROXY 31.6 ng/mL (30-100)
== END | disposition home or self-care (01) ==
LOC: LAB 06:59
PROVIDERS: ATTEND Internal Medicine
DX: Z12.5 Encounter for screening for malignant neoplasm of prostate (principal); E11.9 Type 2 diabetes mellitus without complications; I10 Essential (primary) hypertension; E55.9 Vitamin D deficiency, unspecified; Z13.220 Encounter for screening for lipoid disorders; Z00.01 Encounter for general adult medical examination with abnormal findings; Z13.21 Encounter for screening for nutritional disorder

== ENCOUNTER 2021-06-06 10:02 | Emergency (ER) | payer BC ==
[~2021-06-06] VITALS: Ht 172.7 cm; Wt 113.4 kg
[2021-06-06 10:39] VITALS: BP 137/68
[2021-06-06 11:47] LABS: BASO # 0.1 10*3/uL (0.0-0.1); BASO % 0.5 % (0.0-1.0); EOS # 0.1 10*3/uL (0.0-0.4); HEMATOCRIT 44.7 % (42.0-52.0); LYMPH # 0.6 10*3/uL (1.3-4.4); LYMPH % 5.3 % (27.0-41.0); MEAN CELL VOLUME 85.6 fl (80.0-94.0); MEAN CORPUSCULAR HGB 29.5 pg (27.0-31.0); MEAN CORPUSCULAR HGB CONC 34.5 g/dl (33.0-37.0); MONO # 0.6 10*3/uL (0.1-1.0); MONO % 4.9 % (3.0-9.0); NEUT # 10.2 10*3/uL (2.3-7.9); PLATELET COUNT AUTOMATED 200 10*3/uL (130-400); RED BLOOD COUNT 5.22 10*6/uL (4.50-5.90); RED CELL DISTRI WIDTH 11.9 % (0-14.5); WHITE BLOOD COUNT 11.7 10*3/uL (4.8-10.8)
[2021-06-06 12:04] LABS: ALBUMIN 3.3 gm/dl (3.1-4.5); ALKALINE PHOSPHATASE 85 U/L (45-117); BUN 17 mg/dl (7-24); CHLORIDE 106 mmol/L (98-107); CREATININE 1.23 mg/dL (0.70-1.30); LIPASE 113 U/L (73-393); POTASSIUM 3.7 mmol/L (3.5-5.1); SGOT/AST 23 IU/L (3-35); SODIUM 136 mmol/L (136-145); TOTAL PROTEIN 6.4 gm/dL (6.4-8.2)
[2021-06-06 12:05] LABS: SGPT/ALT 43 U/L (12-78)
[2021-06-06] MEDS ORDERED: ZOFRAN4 MG PO (13:48)
== END 2021-06-06 14:08 | disposition home or self-care (01) ==
LOC: ED 10:02
PROVIDERS: Physician Assistant
DX: R11.2 Nausea with vomiting, unspecified (principal); K59.00 Constipation, unspecified; E11.9 Type 2 diabetes mellitus without complications; Z79.899 Other long term (current) drug therapy; Z79.2 Long term (current) use of antibiotics

== ENCOUNTER → 2022-08-08 | Outpatient (CLI) | payer BC ==
[~2022-08-08] MED LIST changes: +ZOFRAN4 MG PO
[2022-08-08 07:52] LABS: BASO % 0.5 % (0.0-1.0); EOS # 0.2 10*3/uL (0.0-0.4); EOS % 2.4 % (1.0-4.0); HEMATOCRIT 47.3 % (42.0-52.0); LYMPH # 2.8 10*3/uL (1.3-4.4); LYMPH % 31.8 % (27.0-41.0); MEAN CELL VOLUME 88.2 fl (80.0-94.0); MEAN CORPUSCULAR HGB CONC 35.1 g/dl (33.0-37.0); MONO # 0.8 10*3/uL (0.1-1.0); MONO % 8.6 % (3.0-9.0); NEUT % 56.5 % (47.0-73.0); PLATELET COUNT AUTOMATED 230 10*3/uL (130-400); RED BLOOD COUNT 5.36 10*6/uL (4.50-5.90); RED CELL DISTRI WIDTH 11.9 % (0-14.5); RETICULOCYTE % 1.51 % (0.50-2.50); WHITE BLOOD COUNT 8.8 10*3/uL (4.8-10.8)
[2022-08-08 08:09] LABS: ALKALINE PHOSPHATASE 77 U/L (45-117); BUN 23 mg/dl (7-24); CHLORIDE 105 mmol/L (98-107); CHOLESTEROL 181 mg/dL (<200); CREATININE 0.97 mg/dL (0.70-1.30); GAMMA GLUTAMYL TRANSPEPTIDASE 60 U/L (15-85); IRON 125 ug/dL (65-175); LDL CHOLESTEROL 105 mg/dL (9-159); POTASSIUM 3.7 mmol/L (3.5-5.1); SGOT/AST 14 IU/L (3-35); SGPT/ALT 39 U/L (12-78); SODIUM 135 mmol/L (136-145); TOTAL PROTEIN 7.4 gm/dL (6.4-8.2); TRIGLYCERIDES 159 mg/dl (<150); URIC ACID 4.7 mg/dL (3.5-7.2)
[2022-08-08 14:13] LABS: FERRITIN 288.5 ng/mL (22.0-322.0); VITAMIN D, 25-HYDROXY 37.2 ng/mL (30-100)
[2022-08-08 14:45] LABS: BILIRUBIN Negative (Negative); BLOOD Negative (Negative); CLARITY Cloudy (Clear); COLOR Yellow (Yellow); GLUCOSE 1+ (Negative); KETONE Trace (Negative); LEUKO ESTERASE Negative (Negative); NITRITE Negative (Negative); PH 5.5 (4.5-8.0); SPECIFIC GRAVITY >= 1.030 (1.001-1.030)
[2022-08-08 14:59] LABS: BACTERIA TRACE; EPITHELIAL CELLS 0-2; MUCOUS 2+
[2022-08-09 07:06] LABS: RHEUMATOID FACTOR <10.0 IU/mL (<14.0)
[2022-08-09 15:07] LABS: ANTI-DSDNA ANTIBODIES <1 IU/mL (0-9)
== END | disposition home or self-care (01) ==
LOC: LAB 07:23
PROVIDERS: ATTEND Family Medicine
DX: E78.5 Hyperlipidemia, unspecified (principal); R79.89 Other specified abnormal findings of blood chemistry; R53.83 Other fatigue; R74.8 Abnormal levels of other serum enzymes; E55.9 Vitamin D deficiency, unspecified; R06.02 Shortness of breath

== ENCOUNTER 2022-08-18 14:59 | Emergency (ER) | payer BC ==
[~2022-08-18] VITALS: Ht 175.3 cm; Wt 113.4 kg
[2022-08-18 15:01] VITALS: BP 173/88
[2022-08-18 16:58] LABS: BASO % 0.5 % (0.0-1.0); EOS # 0.2 10*3/uL (0.0-0.4); EOS % 1.9 % (1.0-4.0); HEMATOCRIT 45.5 % (42.0-52.0); LYMPH # 1.3 10*3/uL (1.3-4.4); LYMPH % 15.6 % (27.0-41.0); MEAN CORPUSCULAR HGB CONC 34.1 g/dl (33.0-37.0); MEAN PLATELET VOLUME 10.3 fl (9.6-12.3); MONO # 0.8 10*3/uL (0.1-1.0); MONO % 9.8 % (3.0-9.0); NEUT # 5.9 10*3/uL (2.3-7.9); NEUT % 71.8 % (47.0-73.0); PLATELET COUNT AUTOMATED 213 10*3/uL (130-400); RED BLOOD COUNT 5.17 10*6/uL (4.50-5.90); RED CELL DISTRI WIDTH 11.9 % (0-14.5); WHITE BLOOD COUNT 8.3 10*3/uL (4.8-10.8)
[2022-08-18 17:10] LABS: ALKALINE PHOSPHATASE 96 U/L (45-117); BUN 19 mg/dl (7-24); CHLORIDE 106 mmol/L (98-107); POTASSIUM 4.5 mmol/L (3.5-5.1); SGOT/AST 14 IU/L (3-35); SGPT/ALT 42 U/L (12-78); SODIUM 136 mmol/L (136-145); TOTAL PROTEIN 6.8 gm/dL (6.4-8.2)
[2022-08-18 17:11] LABS: INTERNATIONAL NORM RATIO 0.9 (2.0-3.5)
[2022-08-18] MEDS ORDERED: PREDNISONE20 M1 PO (17:39)
[2022-08-18] MEDS ORDERED: PROVENTIL HFA6.7 GM INH (17:40)
== END 2022-08-18 18:03 | disposition home or self-care (01) ==
LOC: ED 14:59
PROVIDERS: Student in an Organized Health Care Education/Training Program
DX: B34.9 Viral infection, unspecified (principal); Z20.822 Contact with and (suspected) exposure to COVID-19; Z79.899 Other long term (current) drug therapy

== ENCOUNTER → 2023-01-05 | Outpatient (CLI) | payer BC ==
[2023-01-05 09:27] LABS: BASO # 0.1 10*3/uL (0.0-0.1); BASO % 0.9 % (0.0-1.0); EOS # 0.2 10*3/uL (0.0-0.4); EOS % 3.4 % (1.0-4.0); HEMATOCRIT 48.6 % (42.0-52.0); LYMPH # 2.2 10*3/uL (1.3-4.4); LYMPH % 31.7 % (27.0-41.0); MEAN CELL VOLUME 86.8 fl (80.0-94.0); MEAN CORPUSCULAR HGB 29.6 pg (27.0-31.0); MEAN CORPUSCULAR HGB CONC 34.2 g/dl (33.0-37.0); MEAN PLATELET VOLUME 10.5 fl (9.6-12.3); MONO # 0.6 10*3/uL (0.1-1.0); MONO % 8.6 % (3.0-9.0); NEUT # 3.8 10*3/uL (2.3-7.9); NEUT % 55.1 % (47.0-73.0); PLATELET COUNT AUTOMATED 258 10*3/uL (130-400); RED CELL DISTRI WIDTH 12.2 % (0-14.5); RETICULOCYTE % 1.58 % (0.50-2.50); WHITE BLOOD COUNT 6.9 10*3/uL (4.8-10.8)
[2023-01-05 09:43] LABS: BILIRUBIN Negative (Negative); BLOOD Negative (Negative); CLARITY Clear (Clear); COLOR Yellow (Yellow); GLUCOSE 2+ (Negative); KETONE Negative (Negative); LEUKO ESTERASE Negative (Negative); NITRITE Negative (Negative); SPECIFIC GRAVITY 1.015 (1.001-1.030); UROBILINOGEN 0.2 E.U./dl (0.0-1.0)
[2023-01-05 09:47] LABS: ALKALINE PHOSPHATASE 81 U/L (46-116); BUN 14 mg/dl (9-23); CHLORIDE 100 mmol/L (98-107); CHOLESTEROL 200 mg/dL (<200); GAMMA GLUTAMYL TRANSPEPTIDASE 51 U/L (0-73); LDL CHOLESTEROL 125 mg/dL (9-159); POTASSIUM 4.2 mmol/L (3.4-5.1); SGPT/ALT 55 U/L (10-49); T3 UPTAKE 24.7 % (22.4-36.7); THYROID STIM HORMONE (HS) 1.376 uIU/ml (0.550-4.780); THYROXINE (T4) TOTAL 6.8 ug/dl (4.5-10.9); TOTAL PROTEIN 7.2 gm/dL (6.0-8.0); TRIGLYCERIDES 169 mg/dl (<150)
[2023-01-05 09:48] LABS: VITAMIN D, 25-HYDROXY 28.8 ng/mL (30-100)
[2023-01-05 09:52] LABS: BACTERIA TRACE; WBC 0-2 wbc/hpf (0-5)
== END | disposition home or self-care (01) ==
LOC: LAB 07:45
PROVIDERS: ATTEND Family Medicine
DX: E11.9 Type 2 diabetes mellitus without complications (principal); E78.5 Hyperlipidemia, unspecified; E55.9 Vitamin D deficiency, unspecified; R79.89 Other specified abnormal findings of blood chemistry; R53.83 Other fatigue

== ENCOUNTER → 2023-05-08 | Outpatient (CLI) | payer BC ==
[2023-05-08 07:45] LABS: BASO # 0.1 10*3/uL (0.0-0.1); BASO % 1.1 % (0.0-1.0); EOS # 0.2 10*3/uL (0.0-0.4); EOS % 2.5 % (1.0-4.0); HEMATOCRIT 44.6 % (42.0-52.0); LYMPH # 2.5 10*3/uL (1.3-4.4); LYMPH % 34.6 % (27.0-41.0); MEAN CELL VOLUME 86.8 fl (80.0-94.0); MEAN CORPUSCULAR HGB 31.5 pg (27.0-31.0); MEAN CORPUSCULAR HGB CONC 36.3 g/dl (33.0-37.0); MONO # 0.6 10*3/uL (0.1-1.0); NEUT # 3.9 10*3/uL (2.3-7.9); NEUT % 53.4 % (47.0-73.0); PLATELET COUNT AUTOMATED 212 10*3/uL (130-400); RED BLOOD COUNT 5.14 10*6/uL (4.50-5.90); RED CELL DISTRI WIDTH 11.7 % (0-14.5); RETICULOCYTE % 1.95 % (0.50-2.50); WHITE BLOOD COUNT 7.3 10*3/uL (4.8-10.8)
[2023-05-08 08:39] LABS: POTASSIUM 4.3 mmol/L (3.4-5.1); T3 UPTAKE 27.4 % (22.4-36.7); THYROID STIM HORMONE (HS) 1.544 uIU/ml (0.550-4.780); THYROXINE (T4) TOTAL 6.8 ug/dl (4.5-10.9); TOTAL PROTEIN 6.7 gm/dL (6.0-8.0)
[2023-05-08 08:56] LABS: VITAMIN D, 25-HYDROXY 52.5 ng/mL (30-100)
[2023-05-08 15:51] LABS: BILIRUBIN Negative (Negative); BLOOD Negative (Negative); CLARITY Clear (Clear); COLOR Yellow (Yellow); GLUCOSE 3+ (Negative); KETONE Negative (Negative); LEUKO ESTERASE Negative (Negative); NITRITE Negative (Negative); SPECIFIC GRAVITY >= 1.030 (1.001-1.030)
[2023-05-08 16:32] LABS: RBC 0-2 rbc/hpf (0-2); WBC 0-2 wbc/hpf (0-5)
== END | disposition home or self-care (01) ==
LOC: LAB 07:10
PROVIDERS: ATTEND Family Medicine
DX: E78.5 Hyperlipidemia, unspecified (principal); E55.9 Vitamin D deficiency, unspecified; R79.89 Other specified abnormal findings of blood chemistry; R53.83 Other fatigue; R74.8 Abnormal levels of other serum enzymes

== ENCOUNTER → 2023-07-06 | Outpatient (CLI) | payer BC | END | disposition home or self-care (01) | LOC: LAB 07:27 | PROVIDERS: ATTEND Urology | DX: R97.20 Elevated prostate specific antigen [PSA] (principal) ==

== ENCOUNTER → 2023-08-06 | Outpatient (CLI) | payer BC ==
[2023-08-06 07:40] LABS: BASO # 0.1 10*3/uL (0.0-0.1); BASO % 0.8 % (0.0-1.0); EOS # 0.3 10*3/uL (0.0-0.4); HEMATOCRIT 46.2 % (42.0-52.0); LYMPH # 2.8 10*3/uL (1.3-4.4); LYMPH % 38.1 % (27.0-41.0); MEAN CORPUSCULAR HGB 31.2 pg (27.0-31.0); MEAN CORPUSCULAR HGB CONC 35.5 g/dl (33.0-37.0); MEAN PLATELET VOLUME 9.9 fl (9.6-12.3); MONO # 0.7 10*3/uL (0.1-1.0); MONO % 9.7 % (3.0-9.0); NEUT # 3.4 10*3/uL (2.3-7.9); NEUT % 47.1 % (47.0-73.0); PLATELET COUNT AUTOMATED 212 10*3/uL (130-400); RED BLOOD COUNT 5.25 10*6/uL (4.50-5.90); WHITE BLOOD COUNT 7.3 10*3/uL (4.8-10.8)
[2023-08-06 07:41] LABS: BILIRUBIN Negative (Negative); BLOOD Negative (Negative); CLARITY Clear (Clear); COLOR Yellow (Yellow); GLUCOSE 2+ (Negative); KETONE Negative (Negative); LEUKO ESTERASE Negative (Negative); NITRITE Negative (Negative); PH 5.5 (4.5-8.0); RETICULOCYTE % 1.92 % (0.50-2.50); UROBILINOGEN 0.2 E.U./dl (0.0-1.0)
[2023-08-06 07:48] LABS: URINE CREATININE RANDOM 59.57 mg/dL
[2023-08-06 07:57] LABS: WBC 0-2 wbc/hpf (0-5)
[2023-08-06 07:58] LABS: RBC 0-2 rbc/hpf (0-2)
[2023-08-06 08:06] LABS: BUN 15 mg/dl (9-23); CHLORIDE 105 mmol/L (98-107); POTASSIUM 4.1 mmol/L (3.4-5.1)
[2023-08-06 08:11] LABS: ALKALINE PHOSPHATASE 80 U/L (46-116); BUN 14 mg/dl (9-23); CHLORIDE 102 mmol/L (98-107); CHOLESTEROL 190 mg/dL (<200); CPK 111 U/L (34-171); GAMMA GLUTAMYL TRANSPEPTIDASE 47 U/L (0-73); LDL CHOLESTEROL 107 mg/dL (9-159); POTASSIUM 4.4 mmol/L (3.4-5.1); SGPT/ALT 30 U/L (10-49); TRIGLYCERIDES 200 mg/dl (<150)
== END | disposition home or self-care (01) ==
LOC: LAB 07:03
PROVIDERS: Family Medicine; ATTEND Internal Medicine Nephrology
DX: E78.5 Hyperlipidemia, unspecified (principal); R74.8 Abnormal levels of other serum enzymes; R79.89 Other specified abnormal findings of blood chemistry; R53.83 Other fatigue; E55.9 Vitamin D deficiency, unspecified; N25.81 Secondary hyperparathyroidism of renal origin; N17.9 Acute kidney failure, unspecified

== ENCOUNTER → 2023-10-17 | Outpatient (CLI) | payer BC ==
[2023-10-17 07:24] LABS: BASO # 0.1 10*3/uL (0.0-0.1); BASO % 0.7 % (0.0-1.0); EOS # 0.2 10*3/uL (0.0-0.4); EOS % 2.2 % (1.0-4.0); HEMATOCRIT 45.9 % (42.0-52.0); LYMPH # 2.2 10*3/uL (1.3-4.4); LYMPH % 28.8 % (27.0-41.0); MEAN CELL VOLUME 86.1 fl (80.0-94.0); MEAN CORPUSCULAR HGB 30.2 pg (27.0-31.0); MEAN CORPUSCULAR HGB CONC 35.1 g/dl (33.0-37.0); MEAN PLATELET VOLUME 9.8 fl (9.6-12.3); MONO # 0.6 10*3/uL (0.1-1.0); MONO % 8.2 % (3.0-9.0); NEUT # 4.5 10*3/uL (2.3-7.9); NEUT % 59.8 % (47.0-73.0); PLATELET COUNT AUTOMATED 231 10*3/uL (130-400); RED BLOOD COUNT 5.33 10*6/uL (4.50-5.90); RED CELL DISTRI WIDTH 11.6 % (0-14.5); RETICULOCYTE % 1.27 % (0.50-2.50); WHITE BLOOD COUNT 7.6 10*3/uL (4.8-10.8)
[2023-10-17 08:01] LABS: ALKALINE PHOSPHATASE 71 U/L (46-116); BUN 15 mg/dl (9-23); CHLORIDE 105 mmol/L (98-107); CHOLESTEROL 164 mg/dL (<200); GAMMA GLUTAMYL TRANSPEPTIDASE 36 U/L (0-73); LDL CHOLESTEROL 100 mg/dL (9-159); POTASSIUM 4.1 mmol/L (3.4-5.1); SGPT/ALT 49 U/L (5-49); TOTAL PROTEIN 6.8 gm/dL (6.0-8.0); TRIGLYCERIDES 140 mg/dl (<150)
[2023-10-17 08:20] LABS: VITAMIN D, 25-HYDROXY 48.8 ng/mL (30-100)
[2023-10-17 13:20] LABS: BILIRUBIN Negative (Negative); BLOOD Negative (Negative); CLARITY Clear (Clear); COLOR Yellow (Yellow); GLUCOSE Negative (Negative); KETONE Negative (Negative); LEUKO ESTERASE Negative (Negative); NITRITE Negative (Negative); SPECIFIC GRAVITY 1.015 (1.001-1.030); UROBILINOGEN 0.2 E.U./dl (0.0-1.0)
[2023-10-17 13:36] LABS: RBC 0-2 rbc/hpf (0-2)
== END | disposition home or self-care (01) ==
LOC: LAB 07:04
PROVIDERS: ATTEND Family Medicine
DX: E55.9 Vitamin D deficiency, unspecified (principal); R53.83 Other fatigue; E78.5 Hyperlipidemia, unspecified; R79.89 Other specified abnormal findings of blood chemistry

== ENCOUNTER → 2024-01-16 | Outpatient (CLI) | payer BC ==
[2024-01-16 07:52] LABS: BASO # 0.1 10*3/uL (0.0-0.1); EOS # 0.3 10*3/uL (0.0-0.4); HEMATOCRIT 45.4 % (42.0-52.0); LYMPH # 2.5 10*3/uL (1.3-4.4); LYMPH % 31.2 % (27.0-41.0); MEAN CELL VOLUME 85.7 fl (80.0-94.0); MEAN CORPUSCULAR HGB 29.1 pg (27.0-31.0); MEAN CORPUSCULAR HGB CONC 33.9 g/dl (33.0-37.0); MEAN PLATELET VOLUME 9.7 fl (9.6-12.3); MONO # 0.6 10*3/uL (0.1-1.0); NEUT # 4.5 10*3/uL (2.3-7.9); NEUT % 56.5 % (47.0-73.0); PLATELET COUNT AUTOMATED 239 10*3/uL (130-400); RED CELL DISTRI WIDTH 12.6 % (0-14.5); RETICULOCYTE % 1.75 % (0.50-2.50)
[2024-01-16 08:19] LABS: ALKALINE PHOSPHATASE 75 U/L (46-116); BUN 14 mg/dl (9-23); CHLORIDE 106 mmol/L (98-107); CHOLESTEROL 174 mg/dL (<200); GAMMA GLUTAMYL TRANSPEPTIDASE 36 U/L (0-73); LDL CHOLESTEROL 104 mg/dL (9-159); POTASSIUM 3.9 mmol/L (3.4-5.1); SGPT/ALT 27 U/L (5-49); T3 UPTAKE 31.9 % (22.4-36.7); THYROXINE (T4) TOTAL 5.8 ug/dl (4.5-10.9); TOTAL PROTEIN 7.2 gm/dL (6.0-8.0); TRIGLYCERIDES 132 mg/dl (<150)
[2024-01-16 09:17] LABS: VITAMIN D, 25-HYDROXY 46.1 ng/mL (30-100)
[2024-01-16 17:23] LABS: BILIRUBIN Negative (Negative); BLOOD Negative (Negative); CLARITY Turbid (Clear); COLOR Yellow (Yellow); GLUCOSE Trace (Negative); KETONE Negative (Negative); LEUKO ESTERASE Negative (Negative); NITRITE Negative (Negative); UROBILINOGEN 0.2 E.U./dl (0.0-1.0)
== END | disposition home or self-care (01) ==
LOC: LAB 07:17
PROVIDERS: ATTEND Family Medicine
DX: E55.9 Vitamin D deficiency, unspecified (principal); R53.83 Other fatigue; R79.89 Other specified abnormal findings of blood chemistry; E78.5 Hyperlipidemia, unspecified

== ENCOUNTER → 2024-04-16 | Outpatient (CLI) | payer BC ==
[~2024-04-16] MED LIST changes: +GLIMEPIRIDE4 M1 PO; -GLUCOPHAGE500 M1 PO; +LOSARTAN POTASS25 M1 PO; +METHOCARBAMOL750 M1 PO; +NAPROXEN250 MG PO; +TRAZODONE50 MG PO
[2024-04-16 09:09] LABS: BILIRUBIN Negative (Negative); BLOOD Negative (Negative); CLARITY Clear (Clear); COLOR Yellow (Yellow); GLUCOSE Negative (Negative); KETONE Negative (Negative); LEUKO ESTERASE Negative (Negative); NITRITE Negative (Negative); PH 5.5 (4.5-8.0); UROBILINOGEN 0.2 E.U./dl (0.0-1.0)
[2024-04-16 09:10] LABS: BASO % 0.5 % (0.0-1.0); EOS # 0.1 10*3/uL (0.0-0.4); EOS % 1.1 % (1.0-4.0); HEMATOCRIT 48.4 % (42.0-52.0); LYMPH # 1.7 10*3/uL (1.3-4.4); LYMPH % 20.4 % (27.0-41.0); MEAN CELL VOLUME 87.7 fl (80.0-94.0); MEAN CORPUSCULAR HGB 30.1 pg (27.0-31.0); MEAN CORPUSCULAR HGB CONC 34.3 g/dl (33.0-37.0); MEAN PLATELET VOLUME 10.1 fl (9.6-12.3); MONO # 0.6 10*3/uL (0.1-1.0); NEUT # 5.9 10*3/uL (2.3-7.9); NEUT % 70.8 % (47.0-73.0); PLATELET COUNT AUTOMATED 238 10*3/uL (130-400); RED BLOOD COUNT 5.52 10*6/uL (4.50-5.90); RED CELL DISTRI WIDTH 12.5 % (0-14.5); RETICULOCYTE % 1.43 % (0.50-2.50); WHITE BLOOD COUNT 8.3 10*3/uL (4.8-10.8)
[2024-04-16 09:21] LABS: WBC 0-2 wbc/hpf (0-5)
[2024-04-16 09:43] LABS: ALKALINE PHOSPHATASE 75 U/L (46-116); BUN 14 mg/dl (9-23); CHLORIDE 104 mmol/L (98-107); CHOLESTEROL 156 mg/dL (<200); GAMMA GLUTAMYL TRANSPEPTIDASE 39 U/L (0-73); LDL CHOLESTEROL 80 mg/dL (9-159); POTASSIUM 3.9 mmol/L (3.4-5.1); SGPT/ALT 28 U/L (5-49); T3 UPTAKE 28.7 % (22.4-36.7); THYROXINE (T4) TOTAL 6.6 ug/dl (4.5-10.9); TOTAL PROTEIN 7.5 gm/dL (6.0-8.0); TRIGLYCERIDES 124 mg/dl (<150)
== END | disposition home or self-care (01) ==
LOC: LAB 08:30
PROVIDERS: ATTEND Family Medicine
DX: E78.5 Hyperlipidemia, unspecified (principal); E55.9 Vitamin D deficiency, unspecified; R79.89 Other specified abnormal findings of blood chemistry; R53.83 Other fatigue; R74.8 Abnormal levels of other serum enzymes

== ENCOUNTER 2024-04-18 22:27 | Emergency (ER) | payer BC ==
[~2024-04-18] VITALS: Ht 170.1 cm; Wt 118.2 kg
[~2024-04-18 22:27] MED LIST changes: -GLIMEPIRIDE4 M1 PO; -LOSARTAN POTASS25 M1 PO; -METHOCARBAMOL750 M1 PO; -NAPROXEN250 MG PO; -TRAZODONE50 MG PO
[2024-04-18 22:59] LABS: BASO # 0.1 10*3/uL (0.0-0.1); BASO % 0.9 % (0.0-1.0); EOS # 0.2 10*3/uL (0.0-0.4); EOS % 2.7 % (1.0-4.0); HEMATOCRIT 45.8 % (42.0-52.0); LYMPH # 2.5 10*3/uL (1.3-4.4); MEAN CELL VOLUME 88.6 fl (80.0-94.0); MEAN CORPUSCULAR HGB 29.8 pg (27.0-31.0); MEAN CORPUSCULAR HGB CONC 33.6 g/dl (33.0-37.0); MEAN PLATELET VOLUME 9.8 fl (9.6-12.3); MONO # 0.6 10*3/uL (0.1-1.0); MONO % 7.7 % (3.0-9.0); NEUT # 4.8 10*3/uL (2.3-7.9); NEUT % 58.5 % (47.0-73.0); PLATELET COUNT AUTOMATED 243 10*3/uL (130-400); RED BLOOD COUNT 5.17 10*6/uL (4.50-5.90); RED CELL DISTRI WIDTH 12.3 % (0-14.5); WHITE BLOOD COUNT 8.2 10*3/uL (4.8-10.8)
[2024-04-18 23:20] LABS: ALKALINE PHOSPHATASE 85 U/L (46-116); BUN 13 mg/dl (9-23); CHLORIDE 104 mmol/L (98-107); POTASSIUM 3.9 mmol/L (3.4-5.1); SGPT/ALT 23 U/L (5-49); TOTAL PROTEIN 6.6 gm/dL (6.0-8.0)
[2024-04-18] MEDS ORDERED: MONTELUKAST SOD10 MG PO (23:24)
[2024-04-18] MEDS ORDERED: TRAZODONE50 MG PO (23:24)
[2024-04-18] MEDS ORDERED: GLIMEPIRIDE4 M1 PO (23:25)
[2024-04-18] MEDS ORDERED: LOSARTAN POTASS25 M1 PO (23:26)
[2024-04-19 00:53] VITALS: BP 183/86
[2024-04-19] MEDS ORDERED: Ketorolac Tromethamine 60 MG/2 ML VIAL IM ONE (01:40)
[2024-04-19] MEDS ORDERED: METHOCARBAMOL 750 MG TAB PO ONE (01:45)
[2024-04-19] MEDS ORDERED: METHOCARBAMOL750 M1 PO (01:47)
[2024-04-19] MEDS ORDERED: NAPROXEN250 MG PO (01:47)
[2024-04-19] MEDS ORDERED: MAGNESIUM CITRATE 296 ML BOT PO ONE (01:50)
== END 2024-04-19 02:02 | disposition home or self-care (01) ==
LOC: ED 22:27
PROVIDERS: Internal Medicine
DX: K59.00 Constipation, unspecified (principal); S29.012A Strain of muscle and tendon of back wall of thorax, initial encounter; I10 Essential (primary) hypertension; E11.9 Type 2 diabetes mellitus without complications; K21.9 Gastro-esophageal reflux disease without esophagitis; M54.2 Cervicalgia; M25.511 Pain in right shoulder; Z98.890 Other specified postprocedural states; X58.XXXA Exposure to other specified factors, initial encounter; Y93.89 Activity, other specified; Y92.009 Unspecified place in unspecified non-institutional (private) residence as the place of occurrence of the external cause; Y99.8 Other external cause status

== ENCOUNTER 2024-09-28 09:59 | Emergency (ER) | payer BC ==
[~2024-09-28] VITALS: Wt 111.1 kg
[~2024-09-28 09:59] MED LIST changes: +GLIMEPIRIDE4 M1 PO; +LOSARTAN POTASS25 M1 PO; +METHOCARBAMOL750 M1 PO; +NAPROXEN250 MG PO; +TRAZODONE50 MG PO
[2024-09-28] MEDS ORDERED: SODIUM CHLORIDE 0.9% 1,000 ML IV ONE ×2 (10:15)
[2024-09-28 10:28] LABS: BASO # 0.1 10*3/uL (0.0-0.1); BASO % 0.7 % (0.0-1.0); EOS # 0.1 10*3/uL (0.0-0.4); EOS % 1.4 % (1.0-4.0); HEMATOCRIT 47.1 % (42.0-52.0); MEAN CELL VOLUME 82.9 fl (80.0-94.0); MEAN CORPUSCULAR HGB 28.3 pg (27.0-31.0); MEAN CORPUSCULAR HGB CONC 34.2 g/dl (33.0-37.0); MEAN PLATELET VOLUME 9.8 fl (9.6-12.3); MONO # 0.6 10*3/uL (0.1-1.0); MONO % 6.6 % (3.0-9.0); NEUT # 5.8 10*3/uL (2.3-7.9); NEUT % 67.8 % (47.0-73.0); PLATELET COUNT AUTOMATED 277 10*3/uL (130-400); RED BLOOD COUNT 5.68 10*6/uL (4.50-5.90); RED CELL DISTRI WIDTH 12.1 % (0-14.5); VENOUS BLOOD GAS O2 SAT 96.5 % (60.0-85.0); WHITE BLOOD COUNT 8.6 10*3/uL (4.8-10.8)
[2024-09-28 10:48] LABS: BUN 15 mg/dl (9-23); CHLORIDE 102 mmol/L (98-107)
[2024-09-28] MEDS ORDERED: INSULIN REGULAR, HUMAN 1 UNIT/0.01 ML IV ONE (10:55)
[2024-09-28] MEDS ORDERED: ACETAMINOPHEN 325 MG TAB PO ONE (12:15)
[2024-09-28] MEDS ORDERED: diphenhydrAMINE hydrochloride 50 MG/ML VIAL IV ONE (12:15)
[2024-09-28] MEDS ORDERED: Prochlorperazine Edisylate 10 MG/2 ML VIAL IV ONE (12:15)
[2024-09-28] MEDS ORDERED: Labetalol Hydrochloride 20 MG/4 ML SYR IV ONE (12:40)
[2024-09-28 13:05] VITALS: BP 163/89
[2024-09-28] MEDS ORDERED: IBU800 M2 PO (13:07)
[2024-09-28] MEDS ORDERED: COMPAZINE10 M1 PO (13:07)
== END 2024-09-28 13:24 | disposition home or self-care (01) ==
LOC: ED 09:59
PROVIDERS: Emergency Medicine
DX: S09.90XA Unspecified injury of head, initial encounter (principal); E11.65 Type 2 diabetes mellitus with hyperglycemia; R55 Syncope and collapse; R63.1 Polydipsia; I10 Essential (primary) hypertension; K21.9 Gastro-esophageal reflux disease without esophagitis; Z98.890 Other specified postprocedural states; Z79.84 Long term (current) use of oral hypoglycemic drugs; W01.198A Fall on same level from slipping, tripping and stumbling with subsequent striking against other object, initial encounter; Y93.89 Activity, other specified; Y92.89 Other specified places as the place of occurrence of the external cause; Y99.8 Other external cause status

== ENCOUNTER 2024-11-28 09:45 | Emergency (ER) | payer BC ==
[~2024-11-28] VITALS: Ht 175.2 cm; Wt 112.7 kg
[~2024-11-28 09:45] MED LIST changes: +COMPAZINE10 M1 PO; +IBU800 M2 PO
[2024-11-28 10:13] VITALS: BP 166/80
[2024-11-28] MEDS ORDERED: AVPAK AZITHROM250 M1 PO (11:38)
== END 2024-11-28 11:41 | disposition home or self-care (01) ==
LOC: ED 09:45
DX: J40 Bronchitis, not specified as acute or chronic (principal); Z20.822 Contact with and (suspected) exposure to COVID-19; I10 Essential (primary) hypertension; E11.9 Type 2 diabetes mellitus without complications; K21.9 Gastro-esophageal reflux disease without esophagitis; F17.210 Nicotine dependence, cigarettes, uncomplicated; Z98.890 Other specified postprocedural states

== ENCOUNTER → 2024-12-16 | Outpatient (CLI) | payer BC ==
[~2024-12-16] MED LIST changes: +AVPAK AZITHROM250 M1 PO
[2024-12-16 07:54] LABS: BASO # 0.1 10*3/uL (0.0-0.1); BASO % 1.2 % (0.0-1.0); EOS # 0.3 10*3/uL (0.0-0.4); EOS % 4.2 % (1.0-4.0); HEMATOCRIT 47.5 % (42.0-52.0); MEAN CELL VOLUME 82.2 fl (80.0-94.0); MEAN CORPUSCULAR HGB CONC 34.1 g/dl (33.0-37.0); MEAN PLATELET VOLUME 10.2 fl (9.6-12.3); MONO # 0.6 10*3/uL (0.1-1.0); MONO % 8.8 % (3.0-9.0); NEUT # 3.4 10*3/uL (2.3-7.9); NEUT % 49.1 % (47.0-73.0); PLATELET COUNT AUTOMATED 264 10*3/uL (130-400); RED BLOOD COUNT 5.78 10*6/uL (4.50-5.90); RED CELL DISTRI WIDTH 12.3 % (0-14.5)
[2024-12-16 08:16] LABS: ALKALINE PHOSPHATASE 73 U/L (46-116); SGPT/ALT 33 U/L (5-49); T3 UPTAKE 34.5 % (22.4-36.7); THYROXINE (T4) TOTAL 5.5 ug/dl (4.5-10.9); TOTAL PROTEIN 7.8 gm/dL (6.0-8.0)
== END | disposition home or self-care (01) ==
LOC: LAB 07:29
PROVIDERS: ATTEND Psychiatry & Neurology Neurology
DX: R41.3 Other amnesia (principal)

== ENCOUNTER → 2025-01-01 | Outpatient (CLI) | payer BC | END | disposition home or self-care (01) | LOC: RAD 08:02 | PROVIDERS: ATTEND Psychiatry & Neurology Neurology | DX: M47.812 Spondylosis without myelopathy or radiculopathy, cervical region (principal); G44.86 Cervicogenic headache ==

== ENCOUNTER → 2025-05-02 | Outpatient (CLI) | payer BC ==
[2025-05-02 10:16] LABS: BASO # 0.1 10*3/uL (0.0-0.1); BASO % 0.8 % (0.0-1.0); EOS # 0.3 10*3/uL (0.0-0.4); EOS % 3.8 % (1.0-4.0); HEMATOCRIT 48.8 % (42.0-52.0); MEAN CELL VOLUME 83.7 fl (80.0-94.0); MEAN CORPUSCULAR HGB CONC 34.6 g/dl (33.0-37.0); MEAN PLATELET VOLUME 9.8 fl (9.6-12.3); MONO # 0.6 10*3/uL (0.1-1.0); MONO % 7.4 % (3.0-9.0); NEUT # 4.7 10*3/uL (2.3-7.9); NEUT % 63.3 % (47.0-73.0); PLATELET COUNT AUTOMATED 285 10*3/uL (130-400); RED BLOOD COUNT 5.83 10*6/uL (4.50-5.90); RED CELL DISTRI WIDTH 12.7 % (0-14.5); RETICULOCYTE % 1.54 % (0.50-2.50); WHITE BLOOD COUNT 7.5 10*3/uL (4.8-10.8)
[2025-05-02 10:17] LABS: BILIRUBIN Negative (Negative); BLOOD Negative (Negative); CLARITY Clear (Clear); COLOR Yellow (Yellow); GLUCOSE 3+ (Negative); KETONE Negative (Negative); LEUKO ESTERASE 1+ (Negative); NITRITE Negative (Negative); SPECIFIC GRAVITY 1.025 (1.001-1.030); UROBILINOGEN 0.2 E.U./dl (0.0-1.0)
[2025-05-02 10:37] LABS: BACTERIA 1+; MUCOUS 1+; WBC TNTC wbc/hpf (0-5)
[2025-05-02 10:48] LABS: ALKALINE PHOSPHATASE 96 U/L (46-116); BUN 16 mg/dl (9-23); CHLORIDE 103 mmol/L (98-107); CHOLESTEROL 162 mg/dL (<200); GAMMA GLUTAMYL TRANSPEPTIDASE 35 U/L (0-73); LDL CHOLESTEROL 100 mg/dL (9-159); POTASSIUM 3.9 mmol/L (3.4-5.1); SGPT/ALT 31 U/L (5-49); T3 UPTAKE 30.4 % (22.4-36.7); THYROXINE (T4) TOTAL 5.9 ug/dl (4.5-10.9); TOTAL PROTEIN 7.4 gm/dL (6.0-8.0); TRIGLYCERIDES 131 mg/dl (<150)
[2025-05-02 11:16] LABS: VITAMIN D, 25-HYDROXY 48.9 ng/mL (30-100)
== END | disposition home or self-care (01) ==
LOC: LAB 09:46
PROVIDERS: ATTEND Family Medicine
DX: E55.9 Vitamin D deficiency, unspecified (principal); E78.5 Hyperlipidemia, unspecified; R79.89 Other specified abnormal findings of blood chemistry; R53.83 Other fatigue

== ENCOUNTER → 2025-05-08 | Outpatient (CLI) | payer BC | END | disposition home or self-care (01) | LOC: RAD 07:18 | PROVIDERS: ATTEND Family Medicine | DX: R06.02 Shortness of breath (principal); M47.814 Spondylosis without myelopathy or radiculopathy, thoracic region ==

== ENCOUNTER → 2025-08-01 | Outpatient (CLI) | payer BC ==
[2025-08-01 08:25] LABS: BASO # 0.1 10*3/uL (0.0-0.1); BASO % 0.7 % (0.0-1.0); EOS # 0.2 10*3/uL (0.0-0.4); EOS % 3.4 % (1.0-4.0); MEAN CELL VOLUME 86.0 fl (80.0-94.0); MEAN CORPUSCULAR HGB 29.2 pg (27.0-31.0); MEAN PLATELET VOLUME 10.3 fl (9.6-12.3); MONO # 0.6 10*3/uL (0.1-1.0); MONO % 8.1 % (3.0-9.0); NEUT # 3.8 10*3/uL (2.3-7.9); NEUT % 56.5 % (47.0-73.0); NUCLEATED RED BLOOD CELL 0.0 % (0.0-0.0); NUCLEATED RED BLOOD CELL 0.0 10*3/uL (0.0-0.0); PLATELET COUNT AUTOMATED 223 10*3/uL (130-400); RED CELL DISTRI WIDTH 12.3 % (0-14.5); RETICULOCYTE % 1.89 % (0.50-2.50)
[2025-08-01 08:54] LABS: BUN 17 mg/dl (9-23); GAMMA GLUTAMYL TRANSFERASE 40 U/L (0-73); LDL CHOLESTEROL 118 mg/dL (9-159); SGPT/ALT 23 U/L (5-49); T3 UPTAKE 35.2 % (22.4-36.7); THYROXINE (T4) TOTAL 5.4 ug/dl (4.5-10.9)
[2025-08-01 09:21] LABS: VITAMIN D, 25-HYDROXY 51.3 ng/mL (30-100)
[2025-08-01 10:48] LABS: BILIRUBIN Negative (Negative); BLOOD Negative (Negative); CLARITY Clear (Clear); COLOR Yellow (Yellow); KETONE Negative (Negative); LEUKO ESTERASE Negative (Negative); NITRITE Negative (Negative); PH 5.5 (4.5-8.0); SPECIFIC GRAVITY >= 1.030 (1.001-1.030); UROBILINOGEN 0.2 E.U./dl (0.0-1.0)
[2025-08-01 11:08] LABS: BACTERIA 1+; MUCOUS 1+; RBC 0-2 rbc/hpf (0-2); WBC 0-2 wbc/hpf (0-5)
== END | disposition home or self-care (01) ==
LOC: LAB 07:55
PROVIDERS: ATTEND Family Medicine
DX: E55.9 Vitamin D deficiency, unspecified (principal); E78.5 Hyperlipidemia, unspecified; R53.83 Other fatigue; R79.89 Other specified abnormal findings of blood chemistry

== ENCOUNTER 2025-08-23 22:45 | Emergency (ER) | payer BC ==
[~2025-08-23] VITALS: Ht 177.8 cm; Wt 104.3 kg
[2025-08-23 23:05] VITALS: BP 172/76
[2025-08-23] MEDS ORDERED: Albuterol Sulf/Ipratropium 3 ML VIAL NEB ONE (23:20)
[2025-08-23] MEDS ORDERED: SODIUM CHLORIDE 0.9% 1,000 ML IV ONE (23:20)
[2025-08-23 23:41] LABS: BASO # 0.1 10*3/uL (0.0-0.1); BASO % 0.8 % (0.0-1.0); EOS # 0.3 10*3/uL (0.0-0.4); EOS % 3.9 % (1.0-4.0); MEAN CELL VOLUME 86.7 fl (80.0-94.0); MEAN CORPUSCULAR HGB 29.3 pg (27.0-31.0); MEAN PLATELET VOLUME 9.8 fl (9.6-12.3); MONO # 0.7 10*3/uL (0.1-1.0); MONO % 9.3 % (3.0-9.0); NEUT # 5.0 10*3/uL (2.3-7.9); NEUT % 62.4 % (47.0-73.0); NUCLEATED RED BLOOD CELL 0.0 % (0.0-0.0); NUCLEATED RED BLOOD CELL 0.0 10*3/uL (0.0-0.0); PLATELET COUNT AUTOMATED 240 10*3/uL (130-400); RED CELL DISTRI WIDTH 12.1 % (0-14.5)
[2025-08-23 23:56] LABS: BUN 18 mg/dl (9-23)
[2025-08-24] MEDS ORDERED: PREDNISONE10 M1 PO (00:28)
[2025-08-24] MEDS ORDERED: ALBUTEROL 8 GM INHALER INH ONE (00:35)
== END 2025-08-24 00:56 | disposition home or self-care (01) ==
LOC: ED 22:45
DX: J20.9 Acute bronchitis, unspecified (principal); E11.9 Type 2 diabetes mellitus without complications; I10 Essential (primary) hypertension; Z79.899 Other long term (current) drug therapy; Z79.84 Long term (current) use of oral hypoglycemic drugs

== ENCOUNTER → 2025-09-14 | Outpatient (CLI) | payer BC ==
[~2025-09-14] MED LIST changes: +PREDNISONE10 M1 PO
== END | disposition home or self-care (01) ==
LOC: US 12:29
PROVIDERS: ATTEND Family Medicine
DX: I77.89 Other specified disorders of arteries and arterioles (principal); R09.89 Other specified symptoms and signs involving the circulatory and respiratory systems

== ENCOUNTER → 2025-09-15 | Outpatient (CLI) | payer BC ==
[~2025-09-15] MED LIST changes: +GADOTERATE MEGLUMINE 10 MMOL/20 ML VIAL IV ONE; +GADOTERATE MEGLUMINE 5 MMOL/10 ML VIAL IV ONE
== END | disposition home or self-care (01) ==
LOC: MRI 05:16
PROVIDERS: ATTEND Family Medicine
DX: I67.82 Cerebral ischemia (principal); G31.9 Degenerative disease of nervous system, unspecified; R51.9 Headache, unspecified

== ENCOUNTER → 2025-11-11 | Outpatient (CLI) | payer BC ==
[~2025-11-11] MED LIST changes: -GADOTERATE MEGLUMINE 10 MMOL/20 ML VIAL IV ONE; -GADOTERATE MEGLUMINE 5 MMOL/10 ML VIAL IV ONE
[2025-11-11 08:02] LABS: BASO # 0.1 10*3/uL (0.0-0.1); BASO % 0.8 % (0.0-1.0); EOS # 0.1 10*3/uL (0.0-0.4); EOS % 1.7 % (1.0-4.0); MEAN CELL VOLUME 87.3 fl (80.0-94.0); MEAN CORPUSCULAR HGB 29.5 pg (27.0-31.0); MEAN PLATELET VOLUME 10.3 fl (9.6-12.3); MONO # 0.5 10*3/uL (0.1-1.0); MONO % 6.9 % (3.0-9.0); NEUT # 5.3 10*3/uL (2.3-7.9); NEUT % 69.5 % (47.0-73.0); NUCLEATED RED BLOOD CELL 0.0 % (0.0-0.0); NUCLEATED RED BLOOD CELL 0.0 10*3/uL (0.0-0.0); PLATELET COUNT AUTOMATED 264 10*3/uL (130-400); RED CELL DISTRI WIDTH 12.0 % (0-14.5); RETICULOCYTE % 1.59 % (0.50-2.50)
[2025-11-11 08:40] LABS: BUN 17 mg/dl (9-23); GAMMA GLUTAMYL TRANSFERASE 29 U/L (0-73); LDL CHOLESTEROL 69 mg/dL (9-159); SGPT/ALT 19 U/L (5-49); T3 UPTAKE 31.5 % (22.4-36.7); THYROXINE (T4) TOTAL 7.3 ug/dl (4.5-10.9)
[2025-11-11 09:20] LABS: VITAMIN D, 25-HYDROXY 47.4 ng/mL (30-100)
[2025-11-11 12:02] LABS: BILIRUBIN Negative (Negative); BLOOD Negative (Negative); CLARITY Clear (Clear); COLOR Yellow (Yellow); KETONE Negative (Negative); LEUKO ESTERASE Negative (Negative); NITRITE Negative (Negative); PH 5.5 (4.5-8.0); SPECIFIC GRAVITY 1.010 (1.001-1.030); UROBILINOGEN 0.2 E.U./dl (0.0-1.0)
[2025-11-11 12:18] LABS: BACTERIA TRACE; RBC 0-2 rbc/hpf (0-2)
== END | disposition home or self-care (01) ==
LOC: LAB 07:03
PROVIDERS: ATTEND Family Medicine
DX: E55.9 Vitamin D deficiency, unspecified (principal); E78.5 Hyperlipidemia, unspecified; R79.89 Other specified abnormal findings of blood chemistry; R53.83 Other fatigue